=== PATIENT | female | born 1985 | race Caucasian/White ===

== ENCOUNTER 2017-06-17 06:57 | Day surgery (SDC) | payer BC ==
[2017-06-17] MEDS ORDERED: Sodium Chloride 0.9% 1,000 ML IV ONE (07:26)
--- NOTE | 2017-06-17 07:26 | C.PDOC ---
History Of Present Illness 31 y/o female with lower abdominal pain and vaginal bleeding, seen by cabin agent with recent pelvic ultrasound, has fibroid in uterus. denies urinary symptoms. no fever or chills. Time Seen by Provider: 06/17/17 07:16 Chief Complaint (Nursing): Abdominal Pain History Per: Patient History/Exam Limitations: no limitations Onset/Duration Of Symptoms: Days Current Symptoms Are (Timing): Still Present Location Of Pain/Discomfort: Suprapubic Radiation Of Pain To:: None Quality Of Discomfort: "Pain" Associated Symptoms: Other (vaginal bleeding). denies: Fever, Chills, Nausea, Vomiting, Urinary Symptoms Abnormal Vaginal Bleeding: Yes Last Menstral Period: March 2017 : 2 Para: 1 Miscarriage: 1 Past Medical History Reviewed: Historical Data, Nursing Documentation, Vital Signs Vital Signs: Last Vital Signs Temp 97.5 F L 06/17/17 07:10 Pulse 73 06/17/17 07:10 Resp 20 06/17/17 07:10 BP 107/72 06/17/17 07:10 Pulse Ox 100 06/17/17 08:25 - Medical History PMH: No Chronic Diseases Family History: States: Unknown Family Hx - Social History Hx Alcohol Use: No Hx Substance Use: No Review Of Systems Constitutional: Negative for: Fever, Chills Gastrointestinal: Positive for: Abdominal Pain. Negative for: Nausea, Vomiting Genitourinary: Positive for: Vaginal Discharge. Negative for: Dysuria Neurological: Negative for: Weakness, Numbness Physical Exam - Physical Exam Appears: Non-toxic, No Acute Distress Skin: Normal Color, Warm, Dry Head: Atraumatic, Normacephalic Oral Mucosa: Moist Chest: Symmetrical Cardiovascular: Rhythm Regular Respiratory: Normal Breath Sounds, No Rales, No Rhonchi, No Wheezing Gastrointestinal/Abdominal: Soft, Tenderness (mild, suprapubic), No Guarding, No Rebound Back: Normal Inspection, No CVA Tenderness Extremity: Normal ROM, Capillary Refill (< 2 sec.) Neurological/Psych: Oriented x3, Normal Speech, Normal Cognition ED Course And Treatment - Laboratory Results Result Diagrams: 06/17/17 08:07 O2 Sat by Pulse Oximetry: 100 (RA) Pulse Ox Interpretation: Normal Medical Decision Making Medical Decision Making: discussed with Dr Valiente, pt to go to OR for procedure. Disposition Discussed With : Julianna Valiente Doctor Will See Patient In The: Hospital - Disposition Disposition Time: 08:30 Condition: STABLE Forms: [employer] (Slovak) - Clinical Impression Clinical Impression: Dysfunctional uterine bleeding, Fibroid uterus
[2017-06-17] MEDS ORDERED: Sodium Chloride 0.9% 1,000 ML ONE (07:44)
[2017-06-17 08:20] LABS: BASO % 0.1 % (0.0-2.0); EOS # 0.1 K/uL (0.0-0.7); EOS % 1.9 % (0.0-4.0); HEMATOCRIT 39.5 % (34.0-47.0); LYMPH # 1.9 K/uL (1.0-4.3); LYMPH % 36.3 % (20.0-40.0); MEAN CELL VOLUME 81.7 fL (81.0-99.0); MEAN CORPUSCULAR HEMOGLOBIN 28.1 pg (27.0-31.0); MEAN CORPUSCULAR HGB CONC 34.4 g/dL (33.0-37.0); MEAN PLATELET VOLUME 8.5 fL (7.2-11.7); MONO # 0.3 K/uL (0.0-0.8); MONO % 6.2 % (0.0-10.0); RED CELL DISTRIBUTION WIDTH 13.4 % (11.5-14.5); WHITE BLOOD COUNT 5.3 K/uL (4.8-10.8)
[2017-06-17 08:33] LABS: CHLORIDE 102 mmol/L (98-107); POTASSIUM 3.9 mmol/L (3.6-5.2); SODIUM 137 mmol/L (132-148)
[2017-06-17 08:35] LABS: GFR AFRICAN-AMERICAN > 60; URINE BILIRUBIN NEGATIVE (NEGATIVE); URINE BLOOD NEGATIVE (NEGATIVE); URINE COLOR Yellow (YELLOW); URINE GLUCOSE (UA) NORMAL (Normal); URINE KETONE NEGATIVE (NEGATIVE); URINE LEUKOCYTE ESTERASE NEG Leu/uL (Negative); URINE PROTEIN NEGATIVE (NEGATIVE); URINE UROBILINOGEN NORMAL mg/dL (0.2-1.0)
[2017-06-17 08:37] LABS: ALB/GLOB RATIO 1.2 (1.0-2.1); ALKALINE PHOSPHATASE 73 U/L (38-126); ALT/SGPT 34 U/L (9-52); AST/SGOT 25 U/L (14-36); BILIRUBIN,TOTAL 0.5 mg/dL (0.2-1.3); BLOOD UREA NITROGEN 14 mg/dL (7-17); CALCIUM 8.9 mg/dl (8.6-10.4); CARBON DIOXIDE 25 mmol/L (22-30); GLUCOSE,RANDOM 80 mg/dL (65-105)
--- NOTE | 2017-06-17 09:04 | CP.PCM.HP ---
History of Present Illness - History of Present Illness History of Present Illness: 31y/o P1 hx of recet complete with post episodic pain and irregular bleeding. pt intially thoguht was related to miscarriage or even mesntura cycle but reports heaving bleedigfn on adn off x 3-5 days, passing large clots adn severe cramping pain midline, not alleviated with any medication. Pt states pain increased since last night 8/ and came to er for evaluation. Pt denies any exacerbating factors, bowel or bladder cmpliants, nause, vomiting, cp, sob, dizzyness however feels weak and tired. Upon US evaluation pt was found to have submucosal myoma. OB: x 1 FT, [facility] [employer]: + fibroids, denie shx of abnormal pap, ovarian cyst, sti PMH: denies PSH: jenny MEDS: pnv NKDA SHx; negateive etoh/tobacco/drugs Present on Admission - Present on Admission Any Indicators Present on Admission: No Review of Systems - Review of Systems All systems: reviewed and no additional remarkable complaints except - Constitutional Constitutional: As Per HPI - EENT Eyes: As Per HPI - Cardiovascular Cardiovascular: As Per HPI - Respiratory Respiratory: As Per HPI - Gastrointestinal Gastrointestinal: Abdominal Pain - Genitourinary Genitourinary: As Per HPI - Reproductive: Female Reproductive:Female: As Per HPI Past Patient History - Infectious Disease Hx of Infectious Diseases: None - Tetanus Immunizations Tetanus Immunization: Unknown - Past Social History Chewing Tobacco Use: No Cigar Use: No Meds Allergies/Adverse Reactions: Allergies Allergy/AdvReac Type Severity Reaction Status Date / Time No Known Allergies Allergy Verified 06/17/17 07:19 Physical Exam - Constitutional Appears: Well - Head Exam Head Exam: ATRAUMATIC, NORMAL INSPECTION - Eye Exam Eye Exam: Normal appearance - ENT Exam ENT Exam: Mucous Membranes Moist, Normal Exam - Neck Exam Neck exam: Positive for: Normal Inspection - Respiratory Exam Respiratory Exam: Clear to Auscultation Bilateral, NORMAL BREATHING PATTERN - Cardiovascular Exam Cardiovascular Exam: REGULAR RHYTHM, +S1, +S2 - GI/Abdominal Exam GI & Abdominal Exam: Normal Bowel Sounds, Soft Additional comments: TTP over suprapubic midline, no guarisdn, no rboudn tendner no rigidty, - Exam Additional comments: External Genitali; No gross abnromalites [place]; drak red red, no lesions Cervix; non tender Uteurs; 010 weeks, mobile, ttp adnex; ano masses, no ntneder b/l Anus/perienum; grossly normal - Back Exam Back exam: NORMAL INSPECTION - Neurological Exam Neurological exam: Alert, CN II-XII Intact - Skin Skin Exam: Dry, Intact, Normal Color, Warm Results - Vital Signs Recent Vital Signs: Last Vital Signs Temp 97.5 F L 06/17/17 07:10 Pulse 73 06/17/17 07:10 Resp 20 06/17/17 07:10 BP 107/72 06/17/17 07:10 Pulse Ox 100 06/17/17 08:31 - Labs Result Diagrams: 06/17/17 08:07 06/17/17 08:07 Labs: Laboratory Results - last 24 hr 06/17/17 06/17/17 06/17/17 07:27 08:07 08:07 WBC 5.3 RBC 4.83 Hgb 13.6 Hct 39.5 MCV 81.7 MCH 28.1 MCHC 34.4 RDW 13.4 Plt Count 223 MPV 8.5 Neut % (Auto) 55.5 Lymph % (Auto) 36.3 [place] % (Auto) 6.2 Eos % (Auto) 1.9 Baso % (Auto) 0.1 Neut # 3.0 Lymph # 1.9 [place] # 0.3 Eos # 0.1 Baso # 0.0 PT 11.1 INR 1.0 APTT 30 Sodium Potassium Chloride Carbon Dioxide Anion Gap BUN Creatinine Est GFR ( Amer) Est GFR (Non-Af Amer) Random Glucose Calcium Total Bilirubin AST ALT Alkaline Phosphatase Total Protein Albumin Globulin Albumin/Globulin Ratio Urine Color Urine Clarity Urine pH Ur Specific [place] Urine Protein Urine Glucose (UA) Urine Ketones Urine Blood Urine Nitrate Urine Bilirubin Urine Urobilinogen Ur Leukocyte Esterase Urine HCG, Qual Blood Type A POSITIVE Antibody Screen Negative 06/17/17 06/17/17 08:07 08:07 WBC RBC Hgb Hct MCV MCH MCHC RDW Plt Count MPV Neut % (Auto) Lymph % (Auto) [place] % (Auto) Eos % (Auto) Baso % (Auto) Neut # Lymph # [place] # Eos # Baso # PT INR APTT Sodium 137 Potassium 3.9 Chloride 102 Carbon Dioxide 25 Anion Gap 14 BUN 14 Creatinine 0.7 Est GFR ( Amer) > 60 Est GFR (Non-Af Amer) > 60 Random Glucose 80 Calcium 8.9 Total Bilirubin 0.5 AST 25 ALT 34 Alkaline Phosphatase 73 Total Protein 8.0 Albumin 4.4 Globulin 3.6 Albumin/Globulin Ratio 1.2 Urine Color Yellow Urine Clarity Clear Urine pH 6.0 Ur Specific [place] 1.018 Urine Protein Negative Urine Glucose (UA) Normal Urine Ketones Negative Urine Blood Negative Urine Nitrate Negative Urine Bilirubin Negative Urine Urobilinogen Normal Ur Leukocyte Esterase Neg Urine HCG, Qual Positive Blood Type Antibody Screen Assessment & Plan (1) Fibroid uterus Assessment and Plan: 31y/o P1 with AUB and sympomatic submucosal myoma 1. admit to [facility] [employer] [facility] 2. NPO, IVF 3. Preop labs 4. Surical consent for [facility] hystersocpy, possible hysterscopic myomectomy via myosure 5. Pain medication morphine 2mg IV q 4 hr prn kael 6. OR/anesthesia aware Status: Acute
[2017-06-17] MEDS ORDERED: HYDROmorphone 0.5 mg/0.5 ml ISec IVP PRN (09:15)
[2017-06-17] MEDS ORDERED: Lactated Ringer's 1,000 ML IV ONE (09:48)
[2017-06-17] MEDS ORDERED: Midazolam 2 MG/2 ML VIAL ONE (09:54)
[2017-06-17] MEDS ORDERED: Propofol 10 mg/ml Inj (20 ML) ONE (09:54)
[2017-06-17] MEDS ORDERED: Oxytocin 10 Units/ml Inj ONE (10:18)
--- NOTE | 2017-06-17 10:41 | PCM.SURG1 ---
Surgeon's Initial Post Op Note - Surgeon's Notes Surgeon: Julianna Valiente MD Driver Retraining Instructor: none Type of Anesthesia: General LMA Pre-Operative Diagnosis: Abnormal uterine bleeding, fibroid Operative Findings: 10 weke size uteurs, anteiror submucosal myoma 1cm protudicng into cvity, bilateral ostia visulzied, urine outp 30cc no adnexla masses apprecited Post-Operative Diagnosis: same as above Operation Performed: Hysteroscopic myomectomy, Dilation and currettage Specimen/Specimens Removed: submcusoal myoma, endometrial currettings Estimated Blood Loss: EBL {In ML}: 5 Blood Products Given: N/A Drains Used: No Drains Post-Op Condition: Good Date of Surgery/Procedure: 06/17/17 Time of Surgery/Procedure: 10:00
[2017-06-17 12:22] VITALS: BP 112/79; PULSE 83; RESP 20; TEMP 97.7; O2SAT 100
--- NOTE | 2017-06-17 19:56 | OP ---
PROCEDURE DATE: 06/17/2017 PREOPERATIVE DIAGNOSIS: Abnormal uterine bleeding. POSTOPERATIVE DIAGNOSIS: Abnormal uterine bleeding. PROCEDURE: Hysteroscopic myomectomy, dilatation and curettage. SURGEON: Julianna Valiente MD FERTILIZER PROCESSING SUPERVISOR: None. TYPE OF ANESTHESIA: General LMA. OPERATIVE FINDINGS: A 10 week size uterus, anterior submucosal myoma 1 cm protruding in the cavity, bilateral ostia visualized, and no adnexal masses. URINE OUTPUT: 30 mL. SPECIMENS REMOVED: Submucosal myoma, endocervical curettings. ESTIMATED BLOOD LOSS: 5 mL. BLOOD PRODUCTS: None. COMPLICATIONS: None. DESCRIPTION OF PROCEDURE: The patient was taken to the operating where she was given general anesthesia. Once found to be adequate, she was placed on the operating table in the dorsal lithotomy position with legs supported using stirrups. The patient was then prepped and draped in the usual sterile fashion. A time-out confirmed correct patient and correct procedure. Bimanual exam was performed with the above mentioned findings. Red rubber catheter was inserted into the urethra to drain the bladder. Following this, Hurd retractor was placed in the anterior and posterior fornix of the vagina. Cervix was adequately visualized and single-toothed tenaculum was placed on the anterior lip of the cervix. The uterus was then sounded to 8 cm and following this cervix was then sequentially dilated to allow for introduction of the hysteroscope under direct visualization using normal saline as the distention media. Upon entry into the cavity bilateral ostia are visualized in the anterior myoma like projection noted within the cavity of 1 cm. MyoSure device was then inserted under direct visualization and carefully resected. There was good hemostasis noted. MyoSure device was then removed and gentle curettage was done 360 degrees. All instruments were removed. There was good hemostasis noted at the tenaculum puncture site. At the end of the procedure, all needle, sponge and instrument counts were noted and correct x2. The patient tolerated the procedure well and was transferred to the recovery room in stable condition. Julianna Valiente MD
== END 2017-06-17 12:20 | disposition home or self-care (01) ==
LOC: C.ER 06:57 → C.SDS 08:29
PROVIDERS: ATTEND Obstetrics & Gynecology
DX: D25.0 Submucous leiomyoma of uterus (principal); N93.9 Abnormal uterine and vaginal bleeding, unspecified; R10.30 Lower abdominal pain, unspecified; Z87.42 Personal history of other diseases of the female genital tract